=== PATIENT | male | born 1970 | race Hispanic/Latino ===

== ENCOUNTER 2023-06-01 12:22 | Emergency (ER) | payer SELFPAY ==
--- NOTE | 2023-06-01 12:30 | ERPHSYRPT ---
- History of Present Illness Time Seen by Provider: 06/01/23 12:29 Historian: patient Exam Limitations: no limitations Physician History: This is a 53-year-old male who states that he has had 4 days of burning sensation in his rectum with multiple bowel movements. They are not diarrheal and there is no evidence of any bright red blood per rectum. The stools have not been black. He had a similar episode approximately 1 year ago. He completed a weeks worth of antibiotics relatively recently for treatment of an ear infection. Patient denies fevers. Patient denies shortness of breath. He states he does have a mild cough. Patient denies chest pain. Patient also has tenderness in bilateral lower quadrants. Patient has never had a colonoscopy. Patient has no known drug allergies and he currently is not taking any medications. Timing/Duration: day(s) (4) Quality: burning, other (Similar symptoms in his rectum) Abdominal Pain Onset Location: RLQ, LLQ Severity of Pain-Max: mild (To moderate) Severity of Pain-Current: mild (To moderate) Modifying Factors: Improves With: nothing Associated Symptoms: denies symptoms Previous symptoms: same symptoms as today (Resolved on its own without a diagnosis) Allergies/Adverse Reactions: No Known Drug Allergies Allergy (Unverified 06/01/23 12:47) Home Medications: No Reportable Medications [No Reported Medications] 06/01/23 [History] Travel Risk - International Travel Have you traveled outside of the country in past 3 weeks: No - Coronavirus Screening Are you exhibiting any of the following symptoms?: Yes Symptoms: Cough: New Onset Close contact with a COVID-19 positive Pt in past 14-21 Days: No - Review of Systems Constitutional: No Symptoms Eyes: No Symptoms Ears, Nose, & Throat: No Symptoms Respiratory: No Symptoms Cardiac: No Symptoms Abdominal/Gastrointestinal: Abdominal Pain (Bilateral lower quadrants, supr apubic region and burning in rectum with and without a bowel movement) Genitourinary Symptoms: No Symptoms Musculoskeletal: No Symptoms Skin: No Symptoms Neurological: No Symptoms Psychological: No Symptoms Endocrine: No Symptoms Hematologic/Lymphatic: No Symptoms Immunological/Allergic: No Symptoms All Other Systems: Reviewed and Negative - Past Medical History Pertinent Past Medical History: No - Past Surgical History Past Surgical History: No - Nursing Vital Signs Nursing Vital Signs: Initial Vital Signs Temperature 99.7 F 06/01/23 12:38 Pulse Rate 55 L 06/01/23 12:38 Respiratory Rate 18 06/01/23 12:38 Blood Pressure 126/70 06/01/23 12:38 O2 Sat by Pulse Oximetry 95 06/01/23 12:38 Pain Scale Pain Intensity 4 - Physical Exam General Appearance: no apparent distress, alert, anxiety Eye Exam: PERRL/EOMI, eyes nml inspection Ears, Nose, Throat Exam: normal ENT inspection, moist mucous membranes Neck Exam: normal inspection, non-tender, supple, full range of motion Respiratory Exam: normal breath sounds, lungs clear, airway intact, No chest tenderness, No respiratory distress Cardiovascular Exam: regular rate/rhythm, normal heart sounds, normal peripheral pulses Gastrointestinal/Abdomen Exam: soft, normal bowel sounds, tenderness (Mild bilateral lower quadrant.), No distention, No mass, No pulsatile mass, No rebound Rectal Exam: normal exam (External exam) Back Exam: normal inspection, normal range of motion, No CVA tenderness, No vertebral tenderness Extremity Exam: normal inspection, normal range of motion, pelvis stable Neurologic Exam: alert, oriented x 3, cooperative, weed cutter II-XII nml as tested, normal mood/affect, nml cerebellar function, nml station & gait, sensation nml Skin Exam: normal color, warm, dry Lymphatic Exam: No adenopathy SpO2 Interpretation: normal O2 Delivery: Room Air - Course Nursing assessment & vital signs reviewed: Yes Ordered Tests: Active Orders 24 hr Category Date Time Status IV Insertion STAT Care 06/01/23 12:47 Active ABDOMEN AND PELVIS W/0 CONTRAS [CT] Stat Exams 06/01/23 12:48 Completed CHEST 1 VIEW (PORTABLE) Stat Exams 06/01/23 12:56 Completed AMYLASE Stat Lab 06/01/23 13:00 Completed CBC W DIFF Stat Lab 06/01/23 13:00 Completed CMP Stat Lab 06/01/23 13:00 Completed LIPASE Stat Lab 06/01/23 13:00 Completed Medication Summary Discontinued Medications Generic Name Dose Route Start Last Admin Trade Name Freq PRN Reason Stop Dose Admin Sodium Chloride 1,000 mls @ 999 mls/hr 06/01/23 12:47 06/01/23 13:08 Sodium Chloride 0.9% 1000 Ml IV 06/01/23 13:47 999 mls/hr .Q1H1M STA Administration Sodium Chloride Confirm 06/01/23 13:07 Sodium Chloride 0.9% 1000 Ml Administered 06/01/23 13:08 Dose 1,000 mls @ .[facility] Lab/Rad Data: Laboratory Result Diagrams 06/01/23 13:00 06/01/23 13:00 Laboratory Results 06/01/23 06/01/23 06/01/23 Range/Units 13:05 13:00 13:00 WBC 5.3 (4.0-10.5) x10^3/uL RBC 5.51 (4.1-5.6) x10^6/uL Hgb 16.2 (12.5-18.0) g/dL Hct 49.3 (42-50) % MCV 89.5 (78-100) fL MCH 29.4 (26-32) pg MCHC 32.9 (32-36) g/dL RDW 12.6 (11.5-14.0) % Plt Count 292 (150-450) x10^3/uL MPV 9.4 (7.5-11.0) fL Gran % 54.4 (36.0-66.0) % Immature Gran % (Auto) 0.6 H (0.00-0.4) % Nucleat RBC Rel Count 0.0 (0.00-0.1) % Eos # (Auto) 0.14 (0-0.5) x10^3/uL Immature Gran # (Auto) 0.03 (0.00-0.03) x10^3u/L Absolute Lymphs (auto) 1.87 (1.0-4.6) x10^3/uL Absolute Monos (auto) 0.33 (0.0-1.3) x10^3/uL Absolute Nucleated RBC 0.00 (0.00-0.01) x10^3u/L Lymphocytes % 35.3 (24.0-44.0) % Monocytes % 6.2 (0.0-12.0) % Eosinophils % 2.6 (0.00-5.0) % Basophils % 0.9 (0.0-0.4) % Absolute Granulocytes 2.88 (1.4-6.9) x10^3/uL Basophils # 0.05 (0-0.4) x10^3/uL Sodium 144 (137-145) mmol/L Potassium 4.0 (3.5-5.1) mmol/L Chloride 106 (98-107) mmol/L Carbon Dioxide 25 (22-30) mmol/L Anion Gap 16.7 H (5-15) MEQ/L BUN 13 (9-20) mg/dL Creatinine 0.87 (0.66-1.25) mg/dL Estimated GFR > 60.0 ML/MIN Glucose 121 H (74-106) mg/dL Calcium 9.0 (8.4-10.2) mg/dL Total Bilirubin 0.60 (0.2-1.3) mg/dL AST 33 (17-59) U/L ALT 40 (0-50) U/L Alkaline Phosphatase 86 (38-126) U/L Serum Total Protein 8.2 (6.3-8.2) g/dL Albumin 4.7 (3.5-5.0) g/dL Amylase 95 (30-110) U/L Lipase 95 (23-300) U/L Urine Color YELLOW (YELLOW) Urine Appearance CLEAR (CLEAR) Urine pH 6.0 (5-6) Ur Specific [place] >=1.030 A (1.005-1.025) POC Urine Protein Conf TRACE A (Negative) Urine Ketones NEGATIVE (NEGATIVE) Urine Nitrite NEGATIVE (NEGATIVE) Urine Bilirubin NEGATIVE (NEGATIVE) Urine Urobilinogen 0.2 (0-1) mg/dL Urine Leukocytes NEGATIVE (NEGATIVE) U Hyaline Cast (Auto) NONE SEEN (0-2) /LPF Urine RBC TRACE NON-HEM A (0-5) Donald/ul Urine Microscopic RBC 0-2 (0-5) /HPF Urine Microscopic WBC 0-2 (0-5) /HPF Ur Epithelial Cells None Seen (None Seen) /HPF Urine Bacteria None Seen (None Seen) /HPF Urine Culture Reflexed NO (NO) Urine Glucose NEGATIVE (NEGATIVE) mg/dL - Progress Progress: unchanged Progress Note: 06/01/23 13:00 This patient's medical history is 1 of moderate complexity. The level of complexity in the work-up performed is based on review of the patient's past medical history, review the patient's medication list, review the patient's drug allergy list, history present illness and physical findings on examination. This patient is to undergo an intravenous line placement, infusion of normal saline solution, urinalysis, CBC, CMP, amylase and lipase as well as CT scan of the abdomen pelvis without contrast. Counseled pt/family regarding: lab results, diagnosis, need for follow-up, rad results Medical Desision Making - Diagnostic Testing Diagnostic test were ordered, analyzed, and reviewed by me: Yes Radiological Interpretation: Reviewed by me, Teleradiologist Report - Risk of complications Minimal Risk: Minimal risk of morbidity - Departure Departure Disposition: Home Clinical Impression: Abdominal pain, Rectal pain Condition: Stable Critical Care Time: No Referrals: NITISH ALBERTS [ACTIVE STAFF] - Follow up/PCP as directed Additional Instructions: Drink plenty of fluids. Avoid spicy foods. Call your primary care provider today, 06/01/2023, to make arranges for follow-up appointment including referral for a colonoscopy if indicated.
[2023-06-01] MEDS ORDERED: Sodium Chloride 0.9% 1000 ML 1,000 ML IV STA (12:47)
[2023-06-01 13:05] VITALS: TEMP 99.7
[2023-06-01] MEDS ORDERED: Sodium Chloride 0.9% 1000 ML 1,000 ML ONE (13:07)
[2023-06-01 13:09] LABS: Absolute Neutrophil Ct (ANC) 2.88 x10^3/uL (1.4-6.9); BASOPHIL % 0.9 % (0.0-0.4); Basophil (Absolute #) 0.05 x10^3/uL (0-0.4); Eosinophil % 2.6 % (0.00-5.0); Eosinophil (Absolute #) 0.14 x10^3/uL (0-0.5); Hematocrit 49.3 % (42-50); Hemoglobin 16.2 g/dL (12.5-18.0); IMMATURE GRAN # 0.03 x10^3u/L (0.00-0.03); IMMATURE GRAN % 0.6 % (0.00-0.4); Lymphocyte (Absolute #) 1.87 x10^3/uL (1.0-4.6); Lymphocytes % 35.3 % (24.0-44.0); Mean Cell Volume 89.5 fL (78-100); Mean Corpuscular Hemoglobin 29.4 pg (26-32); Mean Corpuscular Hgb Concent. 32.9 g/dL (32-36); Mean Platelet Volume 9.4 fL (7.5-11.0); Monocyte (Absolute #) 0.33 x10^3/uL (0.0-1.3); Monocytes % 6.2 % (0.0-12.0); Neutrophil % 54.4 % (36.0-66.0); Platelet Count 292 x10^3/uL (150-450); Red Blood Count 5.51 x10^6/uL (4.1-5.6); Red Cell Distribution Width 12.6 % (11.5-14.0); White Blood Count 5.3 x10^3/uL (4.0-10.5)
[2023-06-01 13:18] LABS: Appearance CLEAR (CLEAR); Bilirubin NEGATIVE (NEGATIVE); Glucose NEGATIVE (NEGATIVE); Ketones NEGATIVE (NEGATIVE); Nitrite NEGATIVE (NEGATIVE); Protein,Urine Dip TRACE (Negative); RBC TRACE NON-HEM Ery/ul (0-5); Specific Gravity >=1.030 (1.005-1.025); Urobilinogen 0.2 mg/dL (0-1)
[2023-06-01 13:20] LABS: Bacteria None Seen /HPF (None Seen); Epithelial Cells None Seen /HPF (None Seen); Hyaline Casts NONE SEEN /LPF (0-2); RBC 0-2 /HPF (0-5); WBC 0-2 /HPF (0-5)
[2023-06-01 13:21] LABS: ADD URINE CULTURE? NO (NO)
--- NOTE | 2023-06-01 13:25 | XRAY ---
Indication: Cough. Comparison: None Portable chest demonstrates normal heart and lungs. Bony thorax intact.
--- NOTE | 2023-06-01 13:47 | XRAY ---
Indication: Bilateral lower quadrant abdomen and rectal pain. Multiple contiguous axial images obtained through the abdomen and pelvis without contrast. Comparison: None Lung bases clear. Heart not enlarged. Noncontrasted stomach and bowel loops appear nonobstructed with normal appearing appendix. Nonobstructing left renal punctate calculus. Left lower kidney also demonstrates 9 mm well-circumscribed exophytic dense lesion, solid renal mass versus complex viscus cyst. No free fluid/air. Remaining liver, gallbladder, pancreas, spleen, adrenal glands, kidneys, ureters, bladder, and aorta are unremarkable for noncontrast exam. Osseous structures intact. Small fatty left inguinal hernia. Impression: 1. 9 mm left lower renal exophytic dense round lesion either a solid renal mass versus complex viscus cyst. Initial renal sonogram may help differentiate. 2. Incidental left renal punctate calculus and small fatty left inguinal hernia. 3. Remaining CT abdomen/pelvis without contrast exam is negative.
[2023-06-01 13:48] LABS: ALBUMIN 4.7 g/dL (3.5-5.0); ALKALINE PHOSPHATASE 86 U/L (38-126); AMYLASE 95 U/L (30-110); ANION GAP 16.7 MEQ/L (5-15); BLOOD UREA NITROGEN 13 mg/dL (9-20); CHLORIDE 106 mmol/L (98-107); Carbon Dioxide 25 mmol/L (22-30); Creatinine 1 0.87 mg/dL (0.66-1.25); EST GLOMERULAR FILTRATION RATE > 60.0 ML/MIN; Glucose 121 mg/dL (74-106); LIPASE 95 U/L (23-300); SGOT/AST 33 U/L (17-59); SGPT/ALT 40 U/L (0-50); SODIUM 144 mmol/L (137-145); Total Protein 8.2 g/dL (6.3-8.2)
[2023-06-01 14:14] VITALS: BP 116/86; PULSE 67; RESP 17; O2SAT 96
== END 2023-06-01 14:14 | disposition home or self-care (01) ==
LOC: ED 12:22
DX: K62.89 Other specified diseases of anus and rectum (principal); R10.31 Right lower quadrant pain; R10.32 Left lower quadrant pain
CPT/HCPCS: 36000; 36415; 71045; 74176; 80053; 81015; 82150; 83690; 85025; 96360; 99284